=== PATIENT | male | born 1995 | race Caucasian/White ===

== ENCOUNTER → 2018-10-18 | Outpatient (CLI) | payer OTHER ==
--- NOTE | 2018-10-18 11:52 | PFTRPT ---
Height: 73.00 Inches Weight: 220.00 Lbs BSA: 2.24 Diagnosis: DYSPNEA, UNSPECIFIED DATE OF PROCEDURE: 10/18/2018 ORDERED BY: Veena Myers PA-C Spirometry: Pre and post bronchodilator study of excellent technical quality. Forced vital capacity normal. FEV1 in proportion. Obstructive index is, therefore, normal. Flow Volume Loop: Expiratory limb of the flow volume loop is reasonably normal. No significant bronchodilator response identified. Lung Volumes: Total lung capacity borderline elevated. Residual volume is in proportion. Diffusing Capacity: Diffusing capacity borderline elevated as well. Hemoglobin: No hemoglobin available for correction. Airway Mechanics: Airway resistance and conductance are normal. IMPRESSION: Minimal to borderline elevation in the diffusing capacity requires clinical correlation. Otherwise, normal study. MTDD
== END ==
LOC: M CARPUL 11:00
PROVIDERS: ATTEND Physician Assistant
DX: J45.909 Unspecified asthma, uncomplicated (principal)